=== PATIENT | male | born 1955 | race Caucasian/White ===

== ENCOUNTER 2018-08-27 00:03 | Inpatient (IN) ==
--- NOTE | 2018-08-27 00:43 | ED ---
HPI General Chief complaint: Health Education Director Problem Stated complaint: Cardiac Time Seen by Provider: 08/27/18 00:36 Source: patient Mode of arrival: ambulatory Limitations: no limitations History of Present Illness HPI narrative: The patient is a 62-year-old male who presents to the emergency department after his AICD discharged at approximately 11:30 PM tonight. The patient states he was lying in bed, was not yet asleep, when his AICD discharge. The patient denied any chest pain, shortness of breath, nausea , vomiting, diaphoresis, or lightheadedness prior to the discharge of the AICD device. The patient states he had an AICD placed secondary to a history of atrial fibrillation and is followed by his back closer is located in [place], [place]. The patient states he was having several discharges earlier this year, was placed on amiodarone, however, cannot tolerate amiodarone. The patient was then seen by the head back closer at his group who subsequently took the patient off of several medications and his symptoms significantly improved. The patient did have a shortness of breath several weeks ago after eating, however, that resolved 2 weeks ago. 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 He denies any current symptoms. The patient is currently on metoprolol, warfarin, furosemide , midodrine, but is no longer taking amiodarone. Related Data Home Medications Medication Instructions Recorded Confirmed allopurinol 300 mg PO DAILY 08/27/18 08/27/18 atorvastatin 20 mg PO DAILY 08/27/18 08/27/18 magnesium oxide [MagOx] 400 mg PO DAILY 08/27/18 08/27/18 metoprolol succinate 25 mg PO DAILY 08/27/18 08/27/18 midodrine 5 mg PO TID 08/27/18 08/27/18 potassium chloride 20 meq PO DAILY 08/27/18 08/27/18 spironolactone 25 mg PO DAILY 08/27/18 08/27/18 torsemide 20 mg PO DAILY PRN 08/27/18 08/27/18 warfarin [Coumadin] 2.5 mg PO EVERY OTHER DAY 08/27/18 08/27/18 warfarin [Coumadin] 5 mg PO DAILY 08/27/18 08/27/18 Allergies Allergy/AdvReac Type Severity Reaction Status Date / Time No Known Allergies Allergy Verified 08/27/18 00:12 Review of Systems ROS: all other systems reviewed are negative [facility] Medical History Medical History Afib (Acute) ICD (implantable cardioverter-defibrillator) in place (Acute) Recent surgical procedure on lower extremity (Acute) Surgical History Surgical History History of appendectomy (Acute) History of hernia surgery (Acute) Social History Social History Substance History: No History of Abuse Second Hand Smoke Exposure: No Smoking Status: Never smoker How Often Do You Have a Drink Containing Alcohol: Monthly or less Recent Travel in [facility] within the Last 8 Weeks: No Recent Out of Country Travel within the Last 8 Weeks: No Exam Narrative Exam Narrative: GENERAL: Awake, alert, pleasant 62-year-old male who appears his stated age and is in no acute respiratory distress. SKIN: Focused skin assessment warm/dry. HEAD: Atraumatic. Normocephalic. EYES: No injection or drainage. ENT: No nasal bleeding or discharge. Mucous membranes pink and moist. NECK: Trachea midline. No JVD. CARDIOVASCULAR: Regular rate and rhythm. No murmur appreciated. AICD in place left chest wall with well-healed scar. RESPIRATORY: No accessory muscle use. Clear to auscultation. Breath sounds equal bilaterally. GASTROINTESTINAL: Abdomen soft, non-tender, nondistended. Hepatic and splenic margins not palpable. MUSCULOSKELETAL: Chronic venous stasis changes lower extremities bilaterally. NEUROLOGICAL: Awake and alert. No obvious cranial nerve deficits. Motor grossly within normal limits. Normal speech. Nonfocal. PSYCHIATRIC: Appropriate mood and affect; insight and judgment normal. Course Initial Documented Vital Signs Temperature 97.4 F L 08/27/18 00:12 Pulse Rate 61 08/27/18 00:12 Respiratory Rate 18 08/27/18 00:12 Blood Pressure 129/86 08/27/18 00:12 Pulse Oximetry 96 08/27/18 00:12 Last Documented Vital Signs Temperature 97.4 F L 08/27/18 00:12 Pulse Rate 63 08/27/18 00:40 Respiratory Rate 18 08/27/18 00:12 Blood Pressure 129/86 08/27/18 00:12 Pulse Oximetry 96 08/27/18 01:10 Medical Decision Making MDM Narrative Medical decision making narrative: Potassium is low at 2.7, this was replaced orally and intravenously. Troponin was elevated greater than 2IV was established, labs are drawn and sent, and the patient was placed on cardiac telemetry monitoring and continuous pulse oximetry monitoring. EKG was ordered and interpreted. Chest x-ray was obtained. [facility] was called to interrogate the patient's AICD. Chest x-ray reveals cardiomegaly and AICD in place, no acute findings. BNP is mildly elevated., Patient does note a history of chronic elevated troponin but not this elevated. The patient's AICD was evaluated by [facility], the patient had sustained ventricular tachycardia lasting 15 seconds prior to discharge. Therefore, the patient will be admitted to the hospital, may benefit from cardiology evaluation. The patient was administered aspirin, he was chest pain-free upon arrival to the emergency department he was chest pain-free when reevaluated several times. The patient will be admitted to the on-call medical service. Medical Screen Exam Complete: Yes Emergency Medical Condition: Yes Differential Diagnosis Differential Diagnosis: Differential diagnosis includes electrolyte abnormality , hypokalemia, hypomagnesemia, dysrhythmia, arrhythmia, AICD malfunction. Lab Data Result diagrams: 08/27/18 00:50 08/27/18 00:50 Lab Results 08/27/18 08/27/18 08/27/18 Range/Units 00:50 00:50 00:50 WBC 9.2 (4.0-11.0) th/mm3 RBC 6.03 H (4.50-5.90) mil/mm3 Hgb 14.5 (13.0-17.0) gm/dL Hct 44.4 (39.0-51.0) % MCV 73.7 L (80.0-100.0) fL MCH 24.0 L (27.0-34.0) pg MCHC 32.6 (32.0-36.0) % RDW 23.8 H (11.6-17.2) % Plt Count 232 (150-450) th/mm3 MPV 9.5 (7.0-11.0) fL Neut % (Auto) 62.6 (16.0-70.0) % Lymph % (Auto) 17.7 (9.0-44.0) % [place] % (Auto) 9.3 H (0.0-8.0) % Eos % (Auto) 9.5 H (0.0-4.0) % Baso % (Auto) 0.9 (0.0-2.0) % Neut # (Auto) 5.8 (1.8-7.7) th/mm3 Lymph # (Auto) 1.6 (1.0-4.8) th/mm3 [place] # (Auto) 0.9 (0.0-0.9) th/mm3 Eos # (Auto) 0.9 H (0.0-0.4) th/mm3 Baso # (Auto) 0.1 (0.0-0.2) th/mm3 WBC Differential . Differential Comment Auto diff final PT 14.6 H (9.8-11.6) sec INR 1.4 Ratio APTT 29.2 (24.3-30.1) sec Sodium (136-145) meq/L Potassium (3.5-5.1) meq/L Chloride (98-107) meq/L Carbon Dioxide (21.0-32.0) meq/L Anion Gap (5-15) meq/L BUN (7-18) mg/dL Creatinine (0.60-1.30) mg/dL Estimated GFR (>89) mL/min Random Glucose (74-106) mg/dL Calcium (8.5-10.1) mg/dL Magnesium (1.5-2.5) mg/dL Total Bilirubin (0.2-1.0) mg/dL AST (15-37) U/L ALT (12-78) U/L Alkaline Phosphatase (45-117) U/L Total Creatine Kinase (39-308) U/L Troponin I (0.02-0.05) ng/mL B-Natriuretic Peptide 772 H (0-100) pg/mL Total Protein (6.4-8.2) g/dL Albumin (3.4-5.0) g/dL 08/27/18 Range/Units 00:50 WBC (4.0-11.0) th/mm3 RBC (4.50-5.90) mil/mm3 Hgb (13.0-17.0) gm/dL Hct (39.0-51.0) % MCV (80.0-100.0) fL MCH (27.0-34.0) pg MCHC (32.0-36.0) % RDW (11.6-17.2) % Plt Count (150-450) th/mm3 MPV (7.0-11.0) fL Neut % (Auto) (16.0-70.0) % Lymph % (Auto) (9.0-44.0) % [place] % (Auto) (0.0-8.0) % Eos % (Auto) (0.0-4.0) % Baso % (Auto) (0.0-2.0) % Neut # (Auto) (1.8-7.7) th/mm3 Lymph # (Auto) (1.0-4.8) th/mm3 [place] # (Auto) (0.0-0.9) th/mm3 Eos # (Auto) (0.0-0.4) th/mm3 Baso # (Auto) (0.0-0.2) th/mm3 WBC Differential Differential Comment PT (9.8-11.6) sec INR Ratio APTT (24.3-30.1) sec Sodium 131 L (136-145) meq/L Potassium 2.7 L* (3.5-5.1) meq/L Chloride 87 L (98-107) meq/L Carbon Dioxide 34.3 H (21.0-32.0) meq/L Anion Gap 10 (5-15) meq/L BUN 68 H (7-18) mg/dL Creatinine 2.00 H (0.60-1.30) mg/dL Estimated GFR 34 L (>89) mL/min Random Glucose 122 H (74-106) mg/dL Calcium 10.0 (8.5-10.1) mg/dL Magnesium 2.8 H (1.5-2.5) mg/dL Total Bilirubin 4.1 H (0.2-1.0) mg/dL AST 61 H (15-37) U/L ALT 47 (12-78) U/L Alkaline Phosphatase 219 H (45-117) U/L Total Creatine Kinase 105 (39-308) U/L Troponin I 2.14 H* (0.02-0.05) ng/mL B-Natriuretic Peptide (0-100) pg/mL Total Protein 8.2 (6.4-8.2) g/dL Albumin 4.4 (3.4-5.0) g/dL Imaging Data Radiologist's impression: Chest X-Ray 08/27/18 00:37 CONCLUSION: Cardiomegaly. ECG Data EKG Prior to Arrival: No Attestation: I personally reviewed and interpreted this ECG as follows: Interpretation: Electronic ventricular paced rhythm at a rate of 60. Discharge Plan Discharge Disposition Patient Disposition: 30 Still Patient Discharge Condition Condition: Stable Discharge Details Diagnosis: Ventricular tachycardia, Acute hypokalemia, Elevated troponin Physicians Team ED Provider: Shadi Lechuga Primary Care Provider: Primary Care Maria R Costa Rxs /Orders / Referrals /Forms Prescriptions: No Action warfarin [Coumadin] 2.5 mg Tablet 2.5 mg PO EVERY OTHER DAY RF: 0 spironolactone 25 mg Tablet 25 mg PO DAILY RF: 0 warfarin [Coumadin] 5 mg Tablet 5 mg PO DAILY RF: 0 allopurinol 300 mg Tablet 300 mg PO DAILY RF: 0 metoprolol succinate 25 mg Tablet Extended Release 24 Hr 25 mg PO DAILY RF: 0 atorvastatin 20 mg Tablet 20 mg PO DAILY RF: 0 midodrine 5 mg Tablet 5 mg PO TID RF: 0 torsemide 10 mg Tablet 20 mg PO DAILY PRN (Reason: Edema) RF: 0 magnesium oxide [MagOx] 400 mg (241.3 mg magnesium) Tablet 400 mg PO DAILY RF: 0 potassium chloride 20 mEq Tablet Extended Release 20 meq PO DAILY RF: 0 Status ED Status: Pending Admission
[2018-08-27 01:10] LABS: Baso # (Auto) 0.1 th/mm3 (0.0-0.2); Baso % (Auto) 0.9 % (0.0-2.0); Eos # (Auto) 0.9 th/mm3 (0.0-0.4); Eos % (Auto) 9.5 % (0.0-4.0); Hematocrit 44.4 % (39.0-51.0); Hemoglobin 14.5 gm/dL (13.0-17.0); Lymph # (Auto) 1.6 th/mm3 (1.0-4.8); Lymph % (Auto) 17.7 % (9.0-44.0); Mean Corpuscular HGB Conc 32.6 % (32.0-36.0); Mean Corpuscular Volume 73.7 fL (80.0-100.0); Mean Platelet Volume 9.5 fL (7.0-11.0); Mono # (Auto) 0.9 th/mm3 (0.0-0.9); Mono % (Auto) 9.3 % (0.0-8.0); Neut # (Auto) 5.8 th/mm3 (1.8-7.7); Neut % (Auto) 62.6 % (16.0-70.0); Platelet Count 232 th/mm3 (150-450); Red Blood Count 6.03 mil/mm3 (4.50-5.90); Red Cell Distribution Width 23.8 % (11.6-17.2); White Blood Count 9.2 th/mm3 (4.0-11.0)
[2018-08-27 01:24] LABS: Activated Partial Thrombo Time 29.2 sec (24.3-30.1); INR 1.4 Ratio; Prothrombin Time 14.6 sec (9.8-11.6)
--- NOTE | 2018-08-27 01:33 | XR ---
EXAM DATE: 08/27/2018 12:37 AM EDT AGE/SEX: 62 years / Male INDICATIONS: Chest pain. CLINICAL DATA: This is the patient's initial encounter. Patient reports that signs and symptoms have been present for 1 day and indicates a pain score of 4/10. MEDICAL/SURGICAL HISTORY: None. Pacemaker. COMPARISON: No prior exams available for comparison. FINDINGS: The heart size is enlarged. There is a pacing device seen in the left chest. Lungs are grossly clear. CONCLUSION: Cardiomegaly. Electronically signed by: Carlton Pierce MD 08/27/2018 1:32 AM EDT
[2018-08-27 01:55] LABS: Alanine Aminotransferase 47 U/L (12-78); Albumin 4.4 g/dL (3.4-5.0); Alkaline Phosphatase 219 U/L (45-117); Anion Gap 10 meq/L (5-15); Aspartate Aminotransferase 61 U/L (15-37); Blood Urea Nitrogen 68 mg/dL (7-18); Carbon Dioxide 34.3 meq/L (21.0-32.0); Chloride 87 meq/L (98-107); Creatine Kinase 105 U/L (39-308); Glomerular Filtration Rate 34 mL/min (>89); Glucose,Random 122 mg/dL (74-106); Magnesium 2.8 mg/dL (1.5-2.5); Sodium 131 meq/L (136-145); Total Protein 8.2 g/dL (6.4-8.2)
[2018-08-27] MEDS ORDERED: Aspirin 325 MG Tablet PO ONE (01:57)
[2018-08-27 01:58] LABS: Potassium 2.7 meq/L (3.5-5.1); Troponin I 2.14 ng/mL (0.02-0.05)
[2018-08-27 02:22] LABS: Creatine Kinase MB 1.9 ng/mL (0.5-3.6)
[2018-08-27] MEDS ORDERED: Acetaminophen 325 MG Tablet PO PRN (04:51)
[2018-08-27] MEDS ORDERED: Warfarin Consult Pharmacy OTHER PRN (04:51)
[2018-08-27] MEDS ORDERED: Bisacodyl 10 MG Supp RECTAL PRN (04:51)
[2018-08-27] MEDS ORDERED: Torsemide 20 MG Tablet PO PRN (05:15)
[2018-08-27] MEDS: Heparin - SQ 10,000 UNITS/ML Vial SQ SCH ×3 (05:15→22:24)
[2018-08-27] MEDS ORDERED: Sodium Chloride 0.9% 2 ML Flush PRN IV.FLUSH (05:17)
[2018-08-27 07:46] LABS: Troponin I 1.97 ng/mL (0.02-0.05)
--- NOTE | 2018-08-27 08:13 | P.HP ---
History of Present Illness Service: Hospitalist Primary Care Physician: No Primary Care Physician Chief Complaint: AICD discharge History of Present Illness: Mr. Humphries is a 62-year-old male with a history of atrial fibrillation , AICD placement (presumably due to significant cardiomyopathy) who presents to the emergency department on 08/27/2018 after his AICD discharged around 11:30 PM on 08/26/2018. Patient was lying in bed but not asleep when his AICD discharged. He denies any prodromal chest pain, shortness of breath, nausea vomiting, diaphoresis or lightheadedness prior to discharge of this device. ED workup shows hypokalemia with potassium 2.7, creatinine 2.0 magnesium 2.8. His troponins are also elevated to 2.14, 1.97. At the time of this interview, patient denies any chest pain, shortness of breath, fever or chills. No changes in bowel or bladder habits. He is currently on Keflex due to cellulitis that was started by his primary care provider. Past medical history: Atrial fibrillation, probable cardiomyopathy, hyperlipidemia, gout Past surgical history: AICD placement, appendectomy, hernia surgery Social history: Patient denies using tobacco, alcohol. Family history: No family history of Alzheimer's or Parkinson's. - Diagnosis (1) AICD discharge (2) Atrial fibrillation (3) Ventricular tachycardia (4) Acute hypokalemia (5) Elevated troponin Inpatient Certification: I certify that the inpatient services were ordered in accordance with Medicare regulations governing the order. This includes certification that hospital inpatient services are reasonable and necessary and in the case of services not specified as inpatient-only under 42 CFR 419.22(n), that they are appropriately provided as inpatient services in accordance to with the 2-midnight benchmark under 43 CFR 412.3(e) Estimated Total Length of Stay (Days): 2 Plans for Post Hospital Care: Not yet determined Review of Systems All other systems reviewed negative except as stated in HPI [facility] - History History Provided By: Patient - Medical History Medical History: Medical History (Last Updated 08/27/18 @ 00:17 by Glo Garcia) Afib ICD (implantable cardioverter-defibrillator) in place Recent surgical procedure on lower extremity - Surgical History Surgical History: Surgical History (Last Updated 08/27/18 @ 00:17 by Glo Garcia) History of appendectomy History of hernia surgery - Tobacco History Second Hand Smoke Exposure: No Smoking Status: Never smoker - Alcohol History How Often Do You Have a Drink Containing Alcohol: Monthly or less - Substance Use History Substance History: No History of Abuse - Travel History Recent Travel in the [place] Within the Last 8 Weeks: No Recent Travel Out of the Country Within the Last 8 Weeks: No - Immunization History Tetanus Immunization: >5 Years Medications and Allergies Active Medications: Active Medications Acetaminophen (Tylenol) 650 mg PO Q4H PRN PRN Reason: Temp > 100.4 Al Hydroxide/Mg Hydroxide (Milk Of Magnesia Liq) 30 ml PO Q12H PRN PRN Reason: Mild Constipation Allopurinol (Zyloprim) 300 mg PO DAILY [facility] Aspirin (Aspirin) 325 mg PO DAILY [facility] Atorvastatin Calcium (Lipitor) 20 mg PO DAILY [facility] Bisacodyl (Dulcolax Supp) 10 mg RECTAL DAILY PRN PRN Reason: SEVERE CONSITIPATION Heparin Sodium (Porcine) (Heparin Inj) 5,000 units SQ Q8H [facility] Last Admin: 08/27/18 05:15 Dose: 5,000 units Potassium Chloride/Sodium Chloride (Ns + Kcl 20 Meq Inj) 1,000 mls @ 84 mls/hr IV.CONT .[id number] [facility] Last Admin: 08/27/18 02:37 Dose: 84 mls/hr Lactulose (Lactulose Liq) 30 ml PO DAILY PRN PRN Reason: SEVERE CONSITIPATION Magnesium Oxide (Mag-Ox) 400 mg PO DAILY [facility] Metoprolol Succinate (Toprol Xl) 25 mg PO DAILY [facility] Midodrine (Proamatine) 5 mg PO TID [facility] Ondansetron HCl (Zofran Inj) 4 mg IV.PUSH Q6H PRN PRN Reason: NAUSEA OR VOMITING Pharmacy Profile Note (Coumadin Consult Pharmacy) 1 each OTHER UNSCH PRN PRN Reason: PHARMACY DOCUMENTATION Potassium Chloride (K-Dur) 20 meq PO DAILY [facility] Senna/Docusate Sodium (Felicia-Colace) 1 tab PO BID [facility] Sennosides (Senokot) 17.2 mg PO Q12H PRN PRN Reason: Moderate Constipation Sodium Chloride (Ns Flush) 2 ml IV.FLUSH BID [facility] Sodium Chloride (Ns Flush) 2 ml IV.FLUSH PRN PRN PRN Reason: FLUSH AFTER USING IV ACCESS Spironolactone (Aldactone) 25 mg PO DAILY [facility] Torsemide (Demadex) 20 mg PO DAILY PRN PRN Reason: Edema Allergies Allergy/AdvReac Type Severity Reaction Status Date / Time No Known Allergies Allergy Verified 08/27/18 00:12 Home Medications Medication Instructions Recorded Confirmed Type allopurinol 300 mg PO DAILY 08/27/18 08/27/18 History atorvastatin 20 mg PO DAILY 08/27/18 08/27/18 History magnesium oxide [MagOx] 400 mg PO DAILY 08/27/18 08/27/18 History metoprolol succinate 25 mg PO DAILY 08/27/18 08/27/18 History midodrine 5 mg PO TID 08/27/18 08/27/18 History potassium chloride 20 meq PO DAILY 08/27/18 08/27/18 History spironolactone 25 mg PO DAILY 08/27/18 08/27/18 History torsemide 20 mg PO DAILY PRN 08/27/18 08/27/18 History warfarin [Coumadin] 2.5 mg PO EVERY OTHER DAY 08/27/18 08/27/18 History warfarin [Coumadin] 5 mg PO DAILY 08/27/18 08/27/18 History Exam Vital signs: Vital Signs 08/27/18 00:12 08/27/18 00:40 08/27/18 01:10 Temperature 97.4 F L Pulse Rate 61 63 Respiratory Rate 18 Blood Pressure 129/86 Pulse Oximetry 96 96 08/27/18 04:10 08/27/18 07:30 Temperature Pulse Rate 60 Respiratory Rate 15 Blood Pressure 111/78 Pulse Oximetry 100 97 Intake & Output 08/26/18 08/27/18 08/27/18 18:59 06:59 18:59 Weight 108.862 kg Narrative: GENERAL: This is a well-nourished, well-developed patient, in no apparent distress. SKIN: No rashes, ecchymoses or lesions. Warm and dry. HEAD: Atraumatic. Normocephalic. No temporal or scalp tenderness. EYES: Pupils equal round and reactive. No injection or drainage. ENT: Nose without bleeding, purulent drainage or septal hematoma. Airway patent. NECK: Trachea midline. No lymphadenopathy. Supple, nontender, no meningeal signs. CARDIOVASCULAR: Regular rate and rhythm without gallops, or rubs. No JVD. There is a systolic murmur present best heard on the left sternal border. RESPIRATORY: Clear to auscultation. Breath sounds equal bilaterally. No wheezes , rales, or rhonchi. GASTROINTESTINAL: Abdomen soft, non-tender, nondistended. No guarding. MUSCULOSKELETAL: Extremities without clubbing, cyanosis. Bilateral lower extremity exam shows mild erythema and trace edema. NEUROLOGICAL: Awake and alert. Cranial nerves II through XII intact. No focal neurological deficits. Normal speech. Results - Labs CBC & Chem 7: 08/27/18 00:50 08/27/18 00:50 Labs: Laboratory Results - last 24 hr 08/27/18 08/27/18 08/27/18 00:50 00:50 00:50 WBC 9.2 RBC 6.03 H Hgb 14.5 Hct 44.4 MCV 73.7 L MCH 24.0 L MCHC 32.6 RDW 23.8 H Plt Count 232 MPV 9.5 Neut % (Auto) 62.6 Lymph % (Auto) 17.7 [place] % (Auto) 9.3 H Eos % (Auto) 9.5 H Baso % (Auto) 0.9 Neut # (Auto) 5.8 Lymph # (Auto) 1.6 [place] # (Auto) 0.9 Eos # (Auto) 0.9 H Baso # (Auto) 0.1 WBC Differential . Differential Comment Auto diff final PT 14.6 H INR 1.4 APTT 29.2 Sodium Potassium Chloride Carbon Dioxide Anion Gap BUN Creatinine Estimated GFR Random Glucose Calcium Magnesium Total Bilirubin AST ALT Alkaline Phosphatase Total Creatine Kinase CK-MB (CK-2) Troponin I B-Natriuretic Peptide 772 H Total Protein Albumin 08/27/18 08/27/18 00:50 06:45 WBC RBC Hgb Hct MCV MCH MCHC RDW Plt Count MPV Neut % (Auto) Lymph % (Auto) [place] % (Auto) Eos % (Auto) Baso % (Auto) Neut # (Auto) Lymph # (Auto) [place] # (Auto) Eos # (Auto) Baso # (Auto) WBC Differential Differential Comment PT INR APTT Sodium 131 L Potassium 2.7 L* Chloride 87 L Carbon Dioxide 34.3 H Anion Gap 10 BUN 68 H Creatinine 2.00 H Estimated GFR 34 L Random Glucose 122 H Calcium 10.0 Magnesium 2.8 H Total Bilirubin 4.1 H AST 61 H ALT 47 Alkaline Phosphatase 219 H Total Creatine Kinase 105 75 CK-MB (CK-2) 1.9 Troponin I 2.14 H* 1.97 H* B-Natriuretic Peptide Total Protein 8.2 Albumin 4.4 - Imaging Impressions Chest X-Ray 08/27/18 00:37 CONCLUSION: Cardiomegaly. Kevin VTE Risk Assessment Caprindara VTE Risk Assessment: Moderate/High Risk (score >= 2) Caprini Risk Assessment Model: Point Value = 1 Point Value = 2 Point Value = 3 Point Value = 5 Age 41-60 Minor surgery BMI > 25 kg/m2 Swollen legs Varicose veins or History of unexplained or recurrent spontaneous Oral contraceptives or hormone replacement Sepsis (< 1 month) Serious lung disease, including pneumonia (< 1 month) Abnormal pulmonary function Acute myocardial infarction Congestive heart failure (< 1 month) History of inflammatory bowel disease Medical patient at bed rest Age 61-74 Arthroscopic surgery Major open surgery (> 45 min) Laparoscopic surgery (> 45 min) Malignancy Confined to bed (> 72 hours) Immobilizing plaster cast Central venous access Age >= 75 History of VTE Family history of VTE Factor V Leiden Prothrombin [id number] Lupus anticoagulant Anticardiolipin antibodies Elevated serum homocysteine Heparin-induced thrombocytopenia Other congenital or acquired thrombophilia Stroke (< 1 month) Elective arthroplasty Hip, pelvis, or leg fracture Acute spinal cord injury (< 1 month) Prophylaxis Regimen: Total Risk Factor Score Risk Level Prophylaxis Regimen 0-1 Low Early ambulation 2 Moderate Order ONE of the following: *Sequential Compression Device (SCD) *Heparin 5000 units SQ BID 3-4 Higher Order ONE of the following medications: *Heparin 5000 units SQ TID *Enoxaparin/Lovenox 40 mg SQ daily (WT < 150 kg, CrCl > 30 mL/min) *Enoxaparin/Lovenox 30 mg SQ daily (WT < 150 kg, CrCl > 10-29 mL/min) *Enoxaparin/Lovenox 30 mg SQ BID (WT < 150 kg, CrCl > 30 mL/min) AND/OR *Sequential Compression Device (SCD) 5 or more Highest Order ONE of the following medications: *Heparin 5000 units SQ TID (Preferred with Epidurals) *Enoxaparin/Lovenox 40 mg SQ daily (WT < 150 kg, CrCl > 30 mL/min) *Enoxaparin/Lovenox 30 mg SQ daily (WT < 150 kg, CrCl > 10-29 mL/min) *Enoxaparin/Lovenox 30 mg SQ BID (WT < 150 kg, CrCl > 30 mL/min) AND *Sequential Compression Device (SCD) Assessment and Plan - Assessment (1) AICD discharge Code(s): Z45.02 - Encounter for adjustment and management of automatic implantable cardiac defibrillator Status: Acute (2) Atrial fibrillation Code(s): I48.91 - Unspecified atrial fibrillation Status: Acute (3) Ventricular tachycardia Code(s): I47.2 - Ventricular tachycardia Status: Acute (4) Acute hypokalemia Code(s): E87.6 - Hypokalemia Status: Acute (5) Elevated troponin Code(s): R74.8 - Abnormal levels of other serum enzymes Status: Acute - Plan Mr. Humphries is a pleasant 62-year-old male with a history of atrial fibrillation, likely cardiomyopathy status post AICD placement who presented to the emergency department due to AICD firing last night around 11:30 PM. Patient denies any chest pain, shortness of breath, fever or chills. Patient is currently symptom-free. AICD discharge Ventricular tachycardia Elevated troponins Cardiomyopathy -Patient has [facility] AICD which was interrogated. 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 Jeanmarie Rojas. -Continue torsemide 20 mg daily, spironolactone 25 mg daily. Continue warfarin. Hypokalemia - K+ 2.7. Will replace with IV KCL - Repeat K+ this afternoon. - Mg is 2.8. Likely CKD stage III - Creatinine 2.0. No previous Creatinine in our system. Full code. Warfarin, INR 1.4 today.
[2018-08-27] MEDS: Sodium Chloride 0.9% 2 ML Flush BID IV.FLUSH SCH ×2 (08:43→22:25)
[2018-08-27] MEDS: Senna/Docusate Sodium 8.6/50 MG Tablet PO SCH ×2 (08:43→22:25)
[2018-08-27] MEDS ORDERED: Aspirin 325 MG Tablet PO SCH (09:00)
[2018-08-27] MEDS ORDERED: Spironolactone 25 MG Tablet PO SCH (09:00)
[2018-08-27] MEDS ORDERED: Allopurinol 300 MG Tablet PO SCH (09:00)
[2018-08-27] MEDS ORDERED: Magnesium Oxide 400 MG Tablet PO SCH (09:00)
--- NOTE | 2018-08-27 09:47 | ECG ---
Date Performed: 08/27/2018 Time Performed: 06:33:38 PTAGE: 62 years EKG: ELECTRONIC VENTRICULAR PACEMAKER No significant change from prior electrocardiogram. DOCTOR: Adrian Cruz Interpretating Date/Time 08/27/2018 09:47:04
--- NOTE | 2018-08-27 09:54 | ECG ---
Date Performed: 08/27/2018 Time Performed: 00:20:43 PTAGE: 62 years EKG: ELECTRONIC VENTRICULAR PACEMAKER ABNORMAL RHYTHM ECG NO PREVIOUS TRACING DOCTOR: Adrian Cruz Interpretating Date/Time 08/27/2018 09:52:40
[2018-08-27] MEDS: Potassium Chlor 20 mEq Premix 20 MEQ/100 ML PIGGYBACK IV.SIG SCH ×4 (10:48→22:24)
[2018-08-27 13:19] LABS: Potassium 2.5 meq/L (3.5-5.1); Troponin I 2.19 ng/mL (0.02-0.05)
[2018-08-27 21:31] LABS: Potassium 3.2 meq/L (3.5-5.1)
[2018-08-27 21:32] LABS: Magnesium 2.5 mg/dL (1.5-2.5)
[2018-08-28 01:22] VITALS: RESP 16; TEMP 98.5; O2SAT 97
--- NOTE | 2018-08-28 02:44 | MB ---
cc: Baljeet Lemons DO DATE: 08/27/2018 REASON FOR CONSULTATION: AICD discharge. HISTORY OF PRESENT ILLNESS: Mainor Humphries is a pleasant 62-year-old male who presented to [facility] Emergency Room due to a discharge of his AICD on 08/26/2018. The patient was lying in bed when he was awoken by his AICD discharging. He denies any chest pain, shortness of breath or palpitations before, during, or after the event. 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 During these times of doing this, he does not keep up with the amount of water that he needs to. On arrival, he was found to have a potassium of 2.7 and elevated creatinine and an elevated troponin. In seeing him, he currently denies any chest pain, shortness of breath or palpitations. PAST MEDICAL HISTORY: 1. Atrial fibrillation. 2. Cardiomyopathy. 3. History of ventricular tachycardia. 4. History of hypokalemia. PAST SURGICAL HISTORY: 1. [facility] AICD placed. 2. Appendectomy. 3. Hernia surgery. 4. Cardiac catheterization within the last few months, which had nonobstructive coronary artery disease. ALLERGIES: NO KNOWN DRUG ALLERGIES. MEDICATIONS: 1. Coumadin 5 mg alternating with 7.5 mg. 2. Spironolactone 25 mg daily. 3. Metoprolol succinate 25 mg daily. 4. Magnesium 400 mg daily. 5. Torsemide 20 mg daily as needed. 6. Potassium 20 mEq daily. 7. Lipitor 20 mg daily. 8. Allopurinol 300 mg daily. 9. Midodrine 5 mg t.i.d. FAMILY HISTORY: Denies premature coronary artery disease or sudden cardiac within the family. SOCIAL HISTORY: Denies tobacco, alcohol or drug abuse. REVIEW OF SYSTEMS: Fourteen systems were reviewed including osteopathic. Pertinent positives and negatives as above, otherwise negative. PHYSICAL EXAMINATION: VITAL SIGNS: Temperature 97.5, heart rate 60, blood pressure 124/83, respirations 12, pulse oximetry 98% on room air. GENERAL: The patient appears well, in no acute distress. Alert, awake and oriented x3. HEENT: Extraocular muscles intact. Mucous membranes moist. NECK: Supple. No JVD at 45 degrees. No carotid bruits heard bilaterally. Carotid upstroke is brisk in nature. HEART: Regular rate and rhythm. Positive first and second heart sounds with no noted murmurs, gallops or rubs. LUNGS: Clear to auscultation bilaterally. No wheezes, rales or rhonchi. ABDOMEN: Soft, nontender, nondistended. No organomegaly noted. EXTREMITIES: Mild erythema with trace edema. Femoral and distal pulses are intact bilaterally. NEUROLOGIC: No focal deficits. SKIN: Warm, dry and intact. OSTEOPATHIC: No kyphoscoliosis, lordosis or paraspinal tender points. LABORATORY DATA: Hemoglobin 14.5, hematocrit 44.4, platelets 232. Potassium 2.7, BUN 68, creatinine 2.0. Troponin 2.19. Electrocardiogram (08/27/2018 06:33) ventricular pacing. IMPRESSION: 1. Automatic implantable cardioverter defibrillator discharge for ventricular tachycardia. 2. Hypokalemia. 3. Known cardiomyopathy. 4. History of ventricular tachycardia. 5. Recent cardiac catheterization showing nonobstructive coronary artery disease. RECOMMENDATIONS: 1. Mr. Humphries presented with what appears to be ventricular tachycardia for which his AICD discharged. 2. This is most likely due to his hypokalemia. 3. He does have an elevated troponin higher than I would appreciate for his AICD firing. I spoke to his medical management specialist, Dr. Jeanmarie Santo in [place] and he states that he recently underwent a cardiac catheterization, which showed nonobstructive coronary artery disease. He also let me know that he has had multiple episodes of this where he will take his diuretic as he would like and becomes hypokalemic leading to his AICD firing. He has had multiple hospitalizations down in [place] with similar type episodes. He states that he would not have him undergo cardiac catheterization and overall since he has had a recent cardiac catheterization showing nonobstructive coronary artery disease, I would agree. 4. After discussing with the patient that most likely I do not believe that he would need a cardiac catheterization, he stated that he would most likely leave [facility] as he is afraid he will lose his job. I explained that his potassium was critically low and this needed to be replaced before doing anything else. He understands this and will think about it. Thank you for allowing me to see Mainor Humphries. If there are any questions, please do not hesitate to call. DO JAY Andrade/gurwinder , 11:23 PM , 11:35 PM
[2018-08-28 05:16] VITALS: BP 114/79; PULSE 60
[2018-08-28] MEDS: Heparin - SQ 10,000 UNITS/ML Vial SQ SCH (05:31)
--- NOTE | 2018-08-28 08:13 | P.DS ---
Date of admission: 08/27/18 02:42 Primary care physician: No Primary Care Physician Brief History from admission: Mr. Humphries is a 62-year-old male with a history of atrial fibrillation , AICD placement (presumably due to significant cardiomyopathy) who presents to the emergency department on 08/27/2018 after his AICD discharged around 11:30 PM on 08/26/2018. Patient was lying in bed but not asleep when his AICD discharged. He denies any prodromal chest pain, shortness of breath, nausea vomiting, diaphoresis or lightheadedness prior to discharge of this device. ED workup shows hypokalemia with potassium 2.7, creatinine 2.0 magnesium 2.8. His troponins are also elevated to 2.14, 1.97. At the time of this interview, patient denies any chest pain, shortness of breath, fever or chills. No changes in bowel or bladder habits. He is currently on Keflex due to cellulitis that was started by his primary care provider. Past medical history: Atrial fibrillation, probable cardiomyopathy, hyperlipidemia, gout Past surgical history: AICD placement, appendectomy, hernia surgery Social history: Patient denies using tobacco, alcohol. Family history: No family history of Alzheimer's or Parkinson's. DS: Diagnosis - Discharge Diagnosis (1) AICD discharge Status: Acute (2) Atrial fibrillation Status: Acute (3) Ventricular tachycardia Status: Acute (4) Acute hypokalemia Status: Acute (5) Elevated troponin Status: Acute DS: Summary - Time Spent with Patient Total time spent providing and/or coordinating discharge services: - Quality: VTE Deep Vein Thrombosis/Pulmonary Embolism Present on Admission: No Exam Vital signs: Vital Signs 08/27/18 08:46 08/27/18 09:00 08/27/18 12:00 Temperature 97.7 F 97.5 F L Pulse Rate 60 60 60 Respiratory Rate 14 18 Blood Pressure 120/83 120/77 Pulse Oximetry 97 99 08/27/18 12:29 08/27/18 15:47 08/27/18 16:00 Temperature 97.5 F L Pulse Rate 60 60 60 Respiratory Rate 12 18 Blood Pressure 124/83 120/80 Pulse Oximetry 98 97 08/27/18 17:57 08/27/18 20:00 08/28/18 00:00 Temperature 97.9 F 98.5 F Pulse Rate 60 59 L Respiratory Rate 17 16 Blood Pressure 109/77 111/84 Pulse Oximetry 97 96 97 08/28/18 04:00 Temperature 98.5 F Pulse Rate 60 Respiratory Rate 16 Blood Pressure 114/79 Pulse Oximetry 97 Intake & Output 08/27/18 08/28/18 08/28/18 18:59 06:59 18:59 Intake Total 1700 / 1700 1700 / 1700 Output Total 1475 / 1475 250 / 250 Balance 225 / 225 1450 / 1450 Weight 113.1 kg Intake: IV 1100 / 1100 1300 / 1300 NS + KCl 20 mEq Inj 1,000 ML @ 1000 / 1000 1000 / 1000 84 mls/hr IV.CONT .[id number] RUS[facility] Rx#:[id number] KCl 20 mEq Premix Inj 20 meq In 100 / 100 300 / 300 100 ml @ 50 mls/hr IV.SIG Q2H RUS[facility] Rx#:[id number] Oral 600 / 600 400 / 400 Output: Urine 1475 / 1475 250 / 250 Other: # Voids 1 1 Results Labs on day of discharge: Labs from last 24 hours 08/27/18 08/27/18 20:22 12:14 Potassium 3.2 L 2.5 L* Magnesium 2.5 Total Creatine Kinase 61 Troponin I 2.19 H* - Impressions ITS Impressions Chest X-Ray 08/27/18 00:37 CONCLUSION: Cardiomegaly. Discharge Plan - Discharge Disposition Patient Disposition: 01 Discharge Home - Discharge Condition Condition: Stable - Discharge Order Discharge Orders: AMA Discharge (Routine); Ordered 08/28/18 Ordered By: Quincy Allen - Physicians Team Primary Care Provider: Primary Care Maria R Costa Attending Provider: Quincy Allen Other Providers: David Carballo MD
--- NOTE | 2018-08-28 14:46 | ECG ---
Date Performed: 08/27/2018 Time Performed: 17:23:02 PTAGE: 62 years EKG: ELECTRONIC VENTRICULAR PACEMAKER ABNORMAL RHYTHM ECG PREVIOUS TRACING : 08/27/2018 06.33 Since the previous tracing, no significant change noted DOCTOR: Iron Moore Interpretating Date/Time 08/28/2018 14:44:04
== END 2018-08-28 07:15 | disposition left against medical advice (07) ==
LOC: NEPE 00:03 → NEDA 02:42 → NEDH 05:56 → H7ONC 13:20
PROVIDERS: ADMIT Hospitalist; ATTEND Hospitalist
CPT/HCPCS: 71010; 71045; 80053; 82550; 82552; 83520; 83735; 83880; 84132; 84484; 85025; 85610; 85730; 93005; J1644; J3480